=== PATIENT | female | born 1980 | race Caucasian/White ===

== ENCOUNTER 2025-04-28 13:30 | Observation (INO) ==
--- NOTE | 2025-04-28 14:17 | Emergency Department Note ---
Impression & Plan Atrial fibrillation, new onset, Hypokalemia, Elevated troponin I level ED Provider Note NAME: HUMA VELASCO AGE: 45 SEX: F : 1980 ARRIVES VIA: Walk-In INFORMANT: Patient, daughter ED PROVIDER(S): Imer Sawant DO CHIEF COMPLAINT: tachycardia HPI: This is a 45-year-old female with the PMHx of hypertension, hyperlipidemia and migraines presenting to [facility] for further evaluation of tachycardia. Patient is accompanied by her daughter who provide additional history. patient reports significant chest palpitations and tachycardia over the last 24 hours. Patient states this started last night. She has felt similar over the past few months. States that she did have a Holter monitor that revealed no abnormalities. She states she is scheduled for a echo in May. Patient denies significant alcohol or tobacco use disorder. No recent changes in medications. Did take her abortive medication for migraine overnight. She does note that she lost approximately 35 pounds without trying over the past year. They deny fever or chills. No cough or congestion. Denies chest pain. The patient does have minimal shortness of breath present. They deny abdominal pain, nausea and vomiting. No urinary complaints. No recent changes in bowel movements. Patient denies recent changes in medications or OTC supplements. Patient offers no other complaints, today. ADDITIONAL HISTORY OBTAINED: Per HPI Chronic Medical/Social Conditions Affecting Care: Per HPI PAST MEDICAL HISTORY: See Below PAST SURGICAL HISTORY: See Below FAMILY HISTORY: See Below SOCIAL HISTORY: See Below HOME MEDICATIONS: See Below ALLERGIES: See Below VITALS: See Below PHYSICAL EXAMINATION: GENERAL: Sitting up in bed, alert, well appearing, well nourished, no distress, non-toxic EYE EXAM: normal conjunctiva. PERRL and EOM's grossly intact. OROPHARYNX: no exudate, no erythema, lips, buccal mucosa, and tongue normal and mucous membranes are moist NECK: supple, no nuchal rigidity, no adenopathy, non-tender LUNGS: Clear to auscultation. Normal chest wall mechanics HEART: no murmurs, Tachycardic rate, irregular rhythm ABDOMEN: abdomen soft, non-tender, no masses, no rebound or guarding. BACK: Back is symmetrical on inspection and there is no deformity, no midline tenderness, no CVA tenderness. SKIN: no rashes and no bruising UPPER EXTREMITIES: upper extremities are grossly normal. LOWER EXTREMITIES: trace lower extremity edema. NEURO EXAM: Normal sensorium, GCS 15, normal speech, no gross weakness of arms, no gross weakness of legs. MEDICAL DECISION MAKING: Differential diagnoses includes but not limited to ACS, stable vs unstable angina, dysrhythmia, viral URI, pneumonia, pericarditis, pneumothorax, costochondritis, MSK strain, PE, hypertensive emergency, psychological causes, esophageal reflux, gastritis In summary, this is a 45 year old female who presented with tachycardia. Differential as above. Nursing notes and pertinent past medical records reviewed. Vital signs reviewed and the patient is tachycardic but otherwise afebrile hemodynamically stable. History and presentation revealed symptoms that have been similar over the course of the last 6 months to a year. No known history of atrial fibrillation. Physical examination revealed as above. As a result of my initial evaluation, the patient has felt similar over the past few months and I do feel that the patient is likely going in and out of atrial fibrillation with RVR. For this reason, we will elect for rate control medications over synchronized cardioversion. Plan to check labs. Patient's CHADSVASc will be 2. Would consider anticoagulation in this patient. Based on history and exam, do not feel the patient is in acute CHF. Diagnostics interpreted by me include EKG and cardiac monitoring as listed below: -Cardiac Monitoring: An order was placed for continuous cardiac monitoring. The monitor shows a rate of 80-170s with regular rhythm. -ECG: Atrial fibrillation with RVR at a rate of [address] segment changes to suggest STEMI. Intervals are otherwise within normal limits. Patient completed laboratory studies and imaging. Results independently interpreted by me are troponin leak that is likely secondary to the patient's atrial fibrillation with RVR. She did have hypokalemia that was replenished. She was given 40 mill equivalents of potassium chloride. Will benefit for additional replenishment. No significant anemia or leukocytosis. Does have mild hyperglycemia. No SULMA. TSH is low. The patient was managed with IV Cardizem bolus with improvement in rate. She intermittently was still having rates up into the 120s. Patient was given a second weight-based dose of Cardizem bolus. Repeat EKG was independently interpreted by me as rate controlled atrial fibrillation at [address] segment changes to suggest STEMI. Intervals are within normal limits. Unfortunately, the patient continued to have atrial fibrillation with RVR intermittently and she was started on a Cardizem drip with adjustments for better rate control. I did send in a prescription for Eliquis after extensive discussion with anticoagulation regarding the patient. She was agreeable to anticoagulation with a DOAC. This appears to be approximately $60 a month per pharmacy. Patient is agreeable to this. She was provided with a coupon for her first month of the prescription. Ultimately, the decision was made to admit the patient for new onset atrial fibrillation with RVR with hypokalemia. I discussed the case with the hospitalist service via telephone/[employer] and they are agreeable to admit the patient to their services by Dr. Rendon. Based on the above, including the patient's age, coexisting illnesses, labs, imaging, and exam findings the decision to treat as an inpatient. I discussed the patient with the hospitalist team who recommended admission to their services. They received the medications, treatments, interventions indicated above and their condition remained guarded. I discussed my findings with the patient and their family and they understand and agree with the treatment plan. All patient / family questions were answered to their satisfaction. Consults/Care Managements Discussions: Per MDM ER treatment provided: See above Procedures: none Critical Care: I have personally spent 38 minutes of critical care time in direct management of this patient. This includes bedside care, interpretation of diagnostic studies, and testing, discussion with consultants, patient, and family members, and other require inpatient management activities. This 38 minutes is in excess of all separately billable procedures. The chart was completed utilizing [employer] Speech voice recognition software. Grammatical errors, random word insertions, pronoun errors, and incomplete sentences are an occasional consequence of this system due to software limitations, ambient noise, and hardware issues. Any formal questions or concerns about the content, text, or information contained within the body of this dictation should be directly addressed to the physician for clarification. Past Med/Surg History Problem List (Updated 04/28/25 @ 16:45 by Imer Sawant DO) Elevated troponin I level (Acute) Hypokalemia (Acute) Atrial fibrillation, new onset (Acute) Heart palpitations Prediabetes Obesity Vitamin D deficiency Hyperlipidemia no meds Migraine headache Hypertension Medical History Seizure as child > none in 38 yrs Surgical History S/P LEEP Family History Mother Colonic polyp Hypertension Father Hypertension Grandmother (Paternal) Breast cancer Aunt Pancreatic cancer Denies family history of Ovarian cancer Prostate cancer Myocardial infarction Colorectal cancer Social History Smoking Status: Never smoker Second Hand Exposure: No; Do You Dip or Chew Tobacco: No; Hx Alcohol Use: No Hx Substance Use: No Preferred Language: Luxembourgish Communication Ability: Effective Visual Impairment: No Limitations Hearing Ability: Normal Circulation Worker Required: No Beliefs That Will Affect Care: None marital status: Current Living Situation: Spouse and Family current occupational status: employed current occupation: [employer]; [employer] How many Children do You have: 2 Feels Safe at Home: Yes Childhood Exposure to Second-Hand Smoke: Yes Diet: regular caffeine: Yes during the past year weight has: decreased > 10 lbs Dental Care, Regularly: Yes Physical Activity Frequency: Other Physical Activity Frequency Comment: at work Seatbelt Use: always Sunscreen Use: No Assistive Devices: Glasses Allergies Allergies Allergy/AdvReac Type Severity Reaction Status Date / Time No Known Drug Allergies Allergy Verified 09/23/24 13:50 Home Meds Home Medications Medication Instructions Recorded Confirmed cholecalciferol (vitamin D3) 50 2,000 unit PO QAM 03/23/23 04/28/25 mcg (2,000 unit) capsule Previous Rx's Medication Instructions Recorded sumatriptan succinate 100 mg tablet 100 mg PO .COMPLEX PRN migraine 05/21/24 headache #9 tabs hydrochlorothiazide 25 mg tablet 25 mg PO QAM #90 tabs 11/24/24 losartan 50 mg tablet 50 mg PO QAM #90 tabs 11/24/24 ubrogepant 100 mg tablet (Ubrelvy) See Rx Instructions .Route 03/27/25 .COMPLEX #10 tabs apixaban 5 mg tablet (Eliquis) 5 mg PO BID #60 tabs 04/28/25 Results & Data (ED) Vital Signs Vital Signs - 24 hr 04/28/25 13:34 04/28/25 14:09 04/28/25 14:26 Temperature 36.3 C L Temperature Source Temporal Artery Scan Pulse Rate 143 H 171 H Pulse Rate [Finger] Respiratory Rate 18 23 Blood Pressure 137/85 130/52 L Blood Pressure [Left Arm] Blood Pressure Mean 102 73 Blood Pressure Mean [Left Arm] Pulse Oximetry 97 96 Oxygen Delivery Method Room Air Sepsis Recent Fever Within 48 Hours No Sepsis New/Unexplained Change in Mental Status No Sepsis Action Taken by Nursing No Action Required 04/28/25 14:30 04/28/25 15:40 Temperature Temperature Source Pulse Rate 99 H Pulse Rate [Finger] 115 H Respiratory Rate 20 Blood Pressure 128/69 Blood Pressure [Left Arm] 143/91 H Blood Pressure Mean 79 Blood Pressure Mean [Left Arm] 108 Pulse Oximetry 99 Oxygen Delivery Method Sepsis Recent Fever Within 48 Hours Sepsis New/Unexplained Change in Mental Status Sepsis Action Taken by Nursing Laboratory Data 04/28/25 13:59 04/28/25 13:59 Lab Results 04/28/25 Range/Units 13:59 WBC 5.95 (4.8-10.8) K/ul RBC 5.11 (4.20-5.40) M/uL Hgb 13.2 (12.0-16.0) g/dl Hct 40.1 (37.0-47.0) % MCV 78.5 L (80.0-100.0) fL MCH 25.8 (25.0-34.0) pg MCHC 32.9 (32.0-36.0) g/dL RDW Std Deviation 35.8 L (36.4-46.3) fL RDW Coeff of Nima 12.5 (11.5-14.5) % Plt Count 262 (130-400) K/uL MPV 10.5 (9.4-12.4) fL Immature Gran % (Auto) 0.3 % Neut % (Auto) 59.6 % Lymph % (Auto) 31.6 % [place] % (Auto) 7.4 % Eos % (Auto) 0.8 % Baso % (Auto) 0.3 % Neut # (Auto) 3.54 (1.40-6.50) K/uL Lymph # (Auto) 1.88 (1.20-3.40) K/uL [place] # (Auto) 0.44 (0.11-0.59) K/uL Eos # (Auto) 0.05 (0.00-0.50) K/uL Baso # (Auto) 0.02 (0.00-0.20) K/uL Immature Gran # (Auto) 0.02 (0.01-0.20) K/uL Sodium 140 (136-145) mmol/L Potassium 3.2 L (3.5-5.1) mmol/L Chloride 106 (98-107) mmol/L Carbon Dioxide 29 (21-32) mmol/L Anion Gap 5 (3-11) BUN 12 (6-23) mg/dl Creatinine 0.54 L (0.6-1.2) mg/dl Est Cr Clr Drug Dosing 161.4 ml/min eGFR 114.20 BUN/Creatinine Ratio 22.2 H (10-20) Glucose 179 H (70-99(Fasting)) mg/dl Calcium 9.7 (8.6-10.3) mg/dl Magnesium 2.0 (1.7-2.4) mg/dl Total Bilirubin 0.9 (0.2-1.0) mg/dl AST 16 (13-39) U/L ALT 14 (7-52) U/L Alkaline Phosphatase 99 (34-104) U/L Troponin I High Sens 105.2 H* (0-14) pg/ml Total Protein 6.9 (6.0-8.3) gm/dl Albumin 3.8 (3.4-5.0) gm/dl Globulin 3.1 (2.5-4.0) gm/dl Albumin/Globulin Ratio 1.2 (0.9-2) Lipase 21 (11-82) U/L TSH < 0.010 L (0.300-4.500) uIu/ml Free T4 3.59 H (0.61-1.60) ng/dl HCG, Qual Negative (Negative) Administered Medications Discontinued Medications Apixaban (Apixaban 5 Mg Tablet) 5 mg PO ONE ONE Stop: 04/28/25 15:28 Last Admin: 04/28/25 15:47 Dose: 5 mg Documented By: CYNTHIA Diltiazem HCl (Diltiazem Hcl 5 Mg/Ml 5 Ml Vial) 20 mg IV NOW STA Stop: 04/28/25 14:07 Last Admin: 04/28/25 14:11 Dose: 20 mg Documented By: NATALIE Co-signed By: KRISTINA Diltiazem HCl (Diltiazem Hcl 5 Mg/Ml 5 Ml Vial) 25 mg IV NOW STA Stop: 04/28/25 15:00 Last Admin: 04/28/25 15:43 Dose: 25 mg Documented By: CYNTHIA Co-signed By: SAMIRA Parenteral Electrolytes (Plasma-Lyte A Ph 7.4) 1,000 mls @ 999 mls/hr IV .Q1H1M ONE Stop: 04/28/25 15:06 Last Infusion: 04/28/25 15:30 Dose: Infused Documented By: Admin: 04/28/25 14:33 Dose: 999 mls/hr Documented By: NATALIE Potassium Chloride (Potassium Chloride Crtab 20 Meq Tabcr) 40 meq PO NOW STA Stop: 04/28/25 15:00 Last Admin: 04/28/25 15:42 Dose: 40 meq Documented By: CYNTHIA Imaging Data Radiologist's Impression: Chest X-Ray 04/28/25 14:06 XR chest 1V portable CLINICAL HISTORY: Chest pain, nonspecific COMPARISON STUDY: None FINDINGS: Heart size and pulmonary vasculature are normal. No consolidation or pleural effusion. No pneumothorax. IMPRESSION: No acute findings. ACT 112: Negative or not required by law. Electronically signed by: Ford Lam M.D. 04/28/2025 2:34 PM Discharge Plan Visit Data Chief Complaint: Tachycardia Stated Complaint: RAPID HEART BEAT FOR 15 HOURS ED Provider: Imer Sawant Discharge Problem: Atrial fibrillation, new onset, Hypokalemia, Elevated troponin I level Patient Disposition: Admitted As Inpatient Condition: Serious Forms Stand Alone Forms: My [facility] Prescriptions Prescriptions: New Eliquis 5 mg tablet 5 mg PO BID Qty: 60 0RF Rx Instructions: new order No Action sumatriptan succinate 100 mg tablet 100 mg PO .COMPLEX PRN (Reason: migraine headache) Qty: 9 5RF Rx Instructions: TAKE 1 TABLET AT ONSET OF MIGRAINE HEADACHE. MAY REPEAT IN 2 HOURS IF NEEDED PRN; hydrochlorothiazide 25 mg tablet 25 mg PO QAM Qty: 90 1RF losartan 50 mg tablet 50 mg PO QAM Qty: 90 1RF cholecalciferol (vitamin D3) 50 mcg (2,000 unit) capsule 2,000 unit PO QAM Ubrelvy 100 mg tablet See Rx Instructions .Route .COMPLEX Qty: 10 0RF Rx Instructions: Take 1 tab PO at onset of headache. May repeat dose after 1 hr x 1 if needed. Do not exceed 200mg in 24 hrs.; Referrals Referrals: Kia Tariq DO [Primary Care Provider] -
[2025-04-28 14:25] LABS: Hematocrit (blood only) 40.1 % (37.0-47.0); Hemoglobin 13.2 g/dl (12.0-16.0); Immature Granulocytes # (auto) 0.02 K/uL (0.01-0.20); Immature Granulocytes % (auto) 0.3 %; Mean Corpuscular Hemoglobin 25.8 pg (25.0-34.0); Mean Corpuscular Volume 78.5 fL (80.0-100.0); Platelet Count 262 K/uL (130-400); RDW Standard Deviation 35.8 fL (36.4-46.3); Red Blood Count 5.11 M/uL (4.20-5.40); White Blood Count 5.95 K/ul (4.8-10.8)
[2025-04-28] MEDS: PLASMA-LYTE A 1,000 ML IV ONE (14:33)
--- NOTE | 2025-04-28 14:35 | XRay Report ---
XR chest 1V portable CLINICAL HISTORY: Chest pain, nonspecific COMPARISON STUDY: None FINDINGS: Heart size and pulmonary vasculature are normal. No consolidation or pleural effusion. No p neumothorax. IMPRESSION: No acute findings. ACT 112: Negative or not required by law. Electronically signed by: Ford Lam M.D. 04/28/2025 2:34 PM
[2025-04-28 14:38] LABS: Pregnancy Test, Serum Negative (Negative)
[2025-04-28 14:42] LABS: Alanine Aminotransferase 14 U/L (7-52); Albumin Globulin Ratio 1.2 (0.9-2); Albumin Level 3.8 gm/dl (3.4-5.0); Alkaline Phosphatase 99 U/L (34-104); Anion Gap 5 (3-11); Bilirubin,Total 0.9 mg/dl (0.2-1.0); Blood Urea Nitrogen 12 mg/dl (6-23); Calcium 9.7 mg/dl (8.6-10.3); Carbon Dioxide 29 mmol/L (21-32); Chloride 106 mmol/L (98-107); Creatinine Clr Calc Pharmacy 161.4 ml/min; Globulin 3.1 gm/dl (2.5-4.0); Glucose 179 mg/dl (70-99(Fasting)); Lipase 21 U/L (11-82); Magnesium 2.0 mg/dl (1.7-2.4); Potassium 3.2 mmol/L (3.5-5.1); Sodium 140 mmol/L (136-145); Total Protein 6.9 gm/dl (6.0-8.3)
--- NOTE | 2025-04-28 14:55 | Electrocardiogram Report ---
Test Reason : Blood Pressure : */* mmHG Vent. Rate : 163 BPM Atrial Rate : * BPM P-R Int : * ms QRS Dur : 88 ms QT Int : 270 ms P-R-T Axes : * 5 8 degrees QTcB Int : 444 ms Atrial fibrillation with rapid ventricular response Possible Anterior infarct , age undetermined Abnormal ECG No previous ECGs available Confirmed by Bar Jean ([id number]) on 04/28/2025 2:55:25 PM Referred By: REFERRED SELF Confirmed By: Bar Jean
[2025-04-28 15:00] LABS: Thyroid Stimulating Hormone < 0.010 uIu/ml (0.300-4.500)
[2025-04-28 15:36] LABS: T4 Free Thyroxine 3.59 ng/dl (0.61-1.60)
[2025-04-28] MEDS: POTASSIUM CHLORIDE CRTAB 20 MEQ TABCR PO STA ×2 (15:42→17:18)
[2025-04-28] MEDS: APIXABAN 5 MG TABLET PO ONE (15:47)
--- NOTE | 2025-04-28 16:36 | History & Physical Report ---
Date of Service April 28, 2025 Assessment & Plan (1) Atrial fibrillation, new onset: (2) Hypokalemia: (3) Elevated troponin I level: (4) Hyperthyroidism: Plan This patient is a 45-year-old female with a history of HTN, prediabetes, obesity, vitamin D deficiency, migraine headaches, HLD who presents to the ER with significant chest palpitations and a fast heart rate along with development of shortness of breath over the last 24 hours. She has been having intermittent heart palpitations over the last 6 to 9 months and had a Holter monitor for 6 days which was normal in 10/2024. Denies chest pain. In the ED, she was found to be in rapid atrial fibrillation with a rate of 163 on ECG. She had no ischemic changes but her troponin was elevated at 105. Her TSH was undetectable and her free T4 was elevated. She was given 2 boluses of IV diltiazem which brought her heart rate down to 120s and was started on a diltiazem drip. There was no evidence of heart failure and in fact the patient reports she has unintentionally lost about 30 pounds over the last year. She is admitted for rapid atrial fibrillation and overt hyperthyroidism #Rapid atrial fibrillation/elevated troponin-likely precipitated by hyperthyroidism. Troponin 100/97, no ischemic changes on ECG, no chest pain, no evidence of CHF -admit to PCU for tele monitoring -given that she has an Apple Watch that indicates Afib and knows the exact time her Afib started (2230 on 04/27), started Eliquis afternoon of 04/28, may be able to perform cardioversion if does not spontaneously convert by the morning--> consult Cardio and keep NPO after midnight in case -replace K+ to improve hypokalemia and follow Mag levels to keep replete -start metoprolol 25mg now and then 25mg po bid-titrate up as able to--> this will treat both hyperthyroidism symptoms and rapid afib -continue diltiazem gtt started in ED-titrate -started Eliquis 5mg po bid -check ECHO -trend serial trops -treat hyperthyroidism #Hyperthyroidism-TSH undetectable, FT4 high, FT3 added on and also very high. With unintentional weight loss, rapid atrial fibrillation, thinning hair, dysphagia, possible palpable thyroid nodule on exam -start beta duncan with metoprolol -will likely start methimazole vs PTU--> will discuss with Endocrine in the AM -check TSI, TPO ab, and thyroglobulin ab in AM -check thyroid US given palpable nodule -needs referral to Endocrine as outpt #Hypokalemia-K+ 3.2 on admission, 2/2 HCTZ use -replaced in ED with KCl 80 meq po -follow BMP, mag in AM #HTN/HLD-BPs normal but hold HCTZ for hypokalemia and hold losartan while uptitrating metoprolol and diltiazem for Afib to avoid hypotension #Microcytosis without anemia-hgb normal but MCV now low at 79 -check Fe studies, ferritin in AM -follow CBC especially now that starting on eliquis in case of occult bleeding #Prediabetes-glucose 179 on arrival, last A1C 5.9% -check A1C -loose Novolog SSI #Obesity BMI 36.6-has already lost 30 lbs from hyperthyroidism -follow as outpt #Migraine headaches-with current LOPEZ likely related to rapid afib -triptans prn #Vitamin D deficiency-continue vit D supplement DVT prophylaxis-Eliquis Disposition-admit to PCU History of Present Illness Chief Complaint: Shortness of breath, heart palpitations Primary Care Provider: Kia Tariq, This patient is a 45-year-old female with a history of HTN, prediabetes, obesity, vitamin D deficiency, migraine headaches, HLD who presents to the ER with significant chest palpitations and a fast heart rate along with development of shortness of breath over the last 24 hours. She has been having intermittent heart palpitations over the last 6 to 9 months and had a Holter monitor for 6 days which was normal in 10/2024. Denies chest pain. In the ED, she was found to be in rapid atrial fibrillation with a rate of 163 on ECG. She had no ischemic changes but her troponin was elevated at 105. Her TSH was undetectable and her free T4 was elevated. She was given 2 boluses of IV diltiazem which brought her heart rate down to 120s and was started on a diltiazem drip. There was no evidence of heart failure and in fact the patient reports she has unintentionally lost about 30 pounds over the last year.Has had some dysphagia as well. She will be admitted for rapid atrial fibrillation. Allergies Allergy/AdvReac Type Severity Reaction Status Date / Time No Known Drug Allergies Allergy Verified 09/23/24 13:50 Home Medications Medication Instructions Recorded Confirmed Type cholecalciferol (vitamin D3) 50 2,000 unit PO QAM 03/23/23 04/28/25 History mcg (2,000 unit) capsule sumatriptan succinate 100 mg tablet 100 mg PO .COMPLEX PRN migraine 05/21/24 04/28/25 Rx headache #9 tabs hydrochlorothiazide 25 mg tablet 25 mg PO QAM #90 tabs 11/24/24 04/28/25 Rx losartan 50 mg tablet 50 mg PO QAM #90 tabs 11/24/24 04/28/25 Rx ubrogepant 100 mg tablet (Ubrelvy) See Rx Instructions .Route 03/27/25 04/28/25 Rx .COMPLEX #10 tabs apixaban 5 mg tablet (Eliquis) 5 mg PO BID #60 tabs 04/28/25 04/28/25 Rx Past Med/Surg History Problem List Hyperthyroidism Elevated troponin I level (Acute) Hypokalemia (Acute) Atrial fibrillation, new onset (Acute) Heart palpitations Prediabetes Obesity Vitamin D deficiency Hyperlipidemia no meds Migraine headache Hypertension Medical History Seizure as child > none in 40 yrs Surgical History S/P LEEP Family History (Updated 04/29/25 @ 00:16 by Jie Rendon MD) Mother Colonic polyp Hypertension Atrial fibrillation Father Hypertension Grandmother (Paternal) Breast cancer Aunt Pancreatic cancer Denies family history of Ovarian cancer Prostate cancer Myocardial infarction Colorectal cancer Social History Smoking Status: Never smoker Second Hand Exposure: No; Do You Dip or Chew Tobacco: No; Tobacco Cessation Education Requested by Patient: No Hx Alcohol Use: Yes Alcohol type: wine Alcohol Intake Frequency: Monthly or Less Hx Substance Use: No Preferred Language: German Communication Ability: Effective Visual Impairment: No Limitations Hearing Ability: Normal Pharmacy Order Entry Technician Required: No Beliefs That Will Affect Care: None marital status: Current Living Situation: Spouse current occupational status: employed 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; [employer] How many Children do You have: 2 Other Information That Helps Us Care for You: No Feels Safe at Home: Yes Safety Concerns: Feels Safe At This Time Childhood Exposure to Second-Hand Smoke: Yes Diet: regular caffeine: Yes during the past year weight has: decreased > 10 lbs Dental Care, Regularly: Yes Physical Activity Frequency: Other Physical Activity Frequency Comment: at work Seatbelt Use: always Sunscreen Use: No Assistive Devices: Glasses Review of Systems Review of Systems: All systems reviewed & are unremarkable except as noted in HPI & below has a headache currently which is unusual for her denies fevers/chills, cough, cold symptoms, CP, abd pain, nausea, diarrhea or constipation; has had some hair thinning is getting regular periods has hot flashes Physical Exam Constitutional: WD/WN, vitals as above Eyes: PERRL, conjunctivae normal, anicteric sclerae ENMT: external ear and nose normal, oropharynx normal Neck: normal visual inspection and trachea midline Thyroid: + thyroid nodule (possible nodule palpated right lobe); thyroid nontender Respiratory: normal respiratory effort, lungs clear to auscultation Cardiovascular: Rate/Rhythm: + tachycardic and + irregularly irregular Heart Sounds: no murmur Vessels: dorsalis pedis pulses present Extremities: no edema Chest (Breasts): Chest: normal inspection of chest Gastrointestinal (Abdomen): normal bowel sounds, soft, nontender, no hepatosplenomegaly Musculoskeletal: Extremities: extremities normal to inspection; no cyanosis and no clubbing Skin: no rashes, warm and dry Neurologic: moves all extremities and awake; no focal motor deficits Psychiatric: A+Ox3, euthymic affect Lymphatic: no lymphedema Results & Data Results & Data Vital Signs (Past 12 Hours) Vital Signs Temp Pulse Pulse Resp BP BP Pulse Ox 04/28/25 15:40 115 H 20 143/91 H 99 04/28/25 14:30 99 H 128/69 04/28/25 14:26 130/52 L 04/28/25 14:09 171 H 23 96 04/28/25 13:34 36.3 C L 143 H 18 137/85 97 O2 Del Method 04/28/25 15:40 04/28/25 14:30 04/28/25 14:26 04/28/25 14:09 04/28/25 13:34 Room Air Laboratory Results CBC, CMP, troponin, magnesium, lipase, TSH, free T4, hCG reviewed Diagnostic Findings CXR image personally reviewed and agree with the following report: Chest X-Ray 04/28/25 14:06 XR chest 1V portable CLINICAL HISTORY: Chest pain, nonspecific COMPARISON STUDY: None FINDINGS: Heart size and pulmonary vasculature are normal. No consolidation or pleural effusion. No pneumothorax. IMPRESSION: No acute findings. ECG Additional Comments: ECG on 04/28/2025 at 1346 with atrial fibrillation, rate 163, no ischemic changes Code Status & VTE Plan Code Status FULL CODE VTE Prophylaxis Plan VTE Prophylaxis will be ordered: Yes PG Care Time/CCT Total # of Minutes Spent Total Time Spent with Patient: Total time spent is greater than 50% in coordination of care (as documented) at patient's floor/unit and/or counseling patient: Coding Level of Care Code 37401 INT INP/OBS CARE 3/75MIN Diagnoses Atrial fibrillation, new onset I48.91 Hypokalemia E87.6 Elevated troponin I level R79.89 Hyperthyroidism E05.90
[2025-04-28] MEDS: STAT IV Infusion **Titration per Protocol STA (16:53)
[2025-04-28] MEDS: METOPROLOL TARTRATE 25 MG TAB PO ONE (19:26)
[2025-04-28] MEDS ORDERED: POLYETHYLENE (MIRALAX) 17 GM PACK PO PRN (20:51)
[2025-04-28] MEDS ORDERED: ACETAMINOPHEN 325 MG TAB PO PRN (20:51)
[2025-04-28] MEDS ORDERED: GLUCOSE 10 TAB/TUBE PO PRN (20:51)
[2025-04-28] MEDS ORDERED: ONDANSETRON INJ 2 MG/ML 2 ML VIAL IV PRN (20:51)
[2025-04-28] MEDS ORDERED: CARBOHYDRATES FOR HYPOGLYCEMIA PO PRN (20:51)
[2025-04-28] MEDS ORDERED: DEXTROSE 50% 50 ML SYRINGE IV PRN (20:51)
[2025-04-28] MEDS ORDERED: GLUCAGON FOR INJ 1 MG VIAL SQ PRN (20:51)
[2025-04-28] MEDS ORDERED: GLUCOSE 40% GEL 15 GM TUBE PO PRN (20:51)
[2025-04-28] MEDS ORDERED: METOPROLOL TARTRATE 25 MG TAB PO SCH (21:00)
[2025-04-28] MEDS: INSULIN ASPART PER UNIT CHARGE SC SCH (21:27)
--- NOTE | 2025-04-29 01:27 | Ultrasound Report ---
Exam(s): US THYROID EXAM: US Soft Tissues Head and Neck, Thyroid CLINICAL HISTORY: Reason for exam: hyperthyroidism, palpable nodule. TECHNIQUE: Real-time ultrasound scan of the thyroid gland and soft tissues of the neck with image documentation. COMPARISON: No relevant prior studies available. FINDINGS: Right thyroid lobe: The right lobe measured 4.8 x 2.2 x 2.0 cm. The right lobe of the gland is inhomogeneous. It contains a hypervascular nodule measuring 3.4 x 1.4 x 1.7 cm. There is a second nodule measuring 0.5 x 0.3 x 0.6 cm.. Left thyroid lobe: The left lobe measured 4.6 x 2.0 x 1.8 cm. The left lobe of the gland is inhomogeneous and of increased vascularity. Isthmus: The isthmus measures 0.3 cm in thickness. IMPRESSION: Thyroid gland is inhomogeneous and of increased vascularity. This raises the possibility of Graves' disease. There are 2 nodules noted in the right lobe of the gland measuring 3.4 x 1.4 x 1.7 cm and 0.5 x 0.3 x 0.6 cm.. Underlying malignancy and the larger nodule cannot be excluded. Consider correlation with biopsy.. Electronically signed by: Price Rudolph MD 04/29/25 01:26 AM
[2025-04-29 03:07] VITALS: RESP 18
[2025-04-29 06:33] LABS: Hematocrit (blood only) 37.8 % (37.0-47.0); Hemoglobin 12.3 g/dl (12.0-16.0); Immature Granulocytes # (auto) 0.02 K/uL (0.01-0.20); Immature Granulocytes % (auto) 0.3 %; Mean Corpuscular Hemoglobin 25.9 pg (25.0-34.0); Mean Corpuscular Volume 79.7 fL (80.0-100.0); Platelet Count 238 K/uL (130-400); RDW Standard Deviation 36.2 fL (36.4-46.3); Red Blood Count 4.74 M/uL (4.20-5.40); White Blood Count 6.58 K/ul (4.8-10.8)
[2025-04-29 07:11] LABS: Anion Gap 5.0 (3-11); Blood Urea Nitrogen 10.0 mg/dl (6-23); Calcium 9.4 mg/dl (8.6-10.3); Carbon Dioxide 27.0 mmol/L (21-32); Chloride 109.0 mmol/L (98-107); Creatinine Clr Calc Pharmacy 181.5 ml/min; Glucose 119.0 mg/dl (70-99(Fasting)); Iron 71.0 mcg/dl (35-150); Magnesium 2.0 mg/dl (1.7-2.4); Potassium 3.8 mmol/L (3.5-5.1); Sodium 141.0 mmol/L (136-145); Total Iron Binding Cap Calc 322.0 mcg/dl (250-450); Transferrin 230.0 mg/dl (200-360); Transferrin (FE) Percent Satur 22.0 % (15-50)
[2025-04-29 07:28] VITALS: TEMP 97.9
[2025-04-29 07:31] LABS: Ferritin 113.6 ng/ml (8-388)
[2025-04-29 08:02] LABS: Hemoglobin A1C 6.0 % (4.5-5.6)
--- NOTE | 2025-04-29 08:24 | Cardiology Consultation ---
Date of Consultation April 29, 2025 Assessment & Plan (1) Paroxysmal atrial fibrillation: (2) Hypertension: (3) Hyperthyroidism: Plan ASSESSMENT/PLAN: 1. Paroxysmal atrial fibrillation: Quite symptomatic. Likely 2 episodes in September 2024 and definitively documented 04/28/2025 but in the setting of hyperthyroidism. Discussed the diagnosis. Fortunately, she spontaneously converted. Recommend metoprolol tartrate 25 mg twice daily. Recommend anticoagulation for stroke risk reduction. If the etiology of the atrial fibrillation is hyperthyroidism, would hope for resolution of future episodes when thyroid issues are corrected. Monitor CBC while on anticoagulation therapy. 2. Hypertension: History of hypertension. Blood pressure reasonably controlled. Adding beta-duncan as above. 3. Hyperthyroidism: As per primary hospitalist service and endocrinology. 4. Disposition: Follow-up in the cardiology office in the next few weeks. Call sooner for questions or concerns. Patient care communicated with Dr. Rendon of the primary hospitalist service. Thank you for allowing me to participate in the care of your patient. Please call for any other questions or concerns. Sincerely, Leonid Aguiar M.D. History of Present Illness Reason for Consultation: " New onset rapid atrial fibrillation" Requesting Physician: Jie Rendon MD Attending Physician: Jie Rendon MD History of Present Illness Ms. Merino is a very pleasant 45-year-old female with a history significant for hypertension, prediabetes, dyslipidemia, hypothyroidism. She was hospitalized on 04/28/2025 with newly diagnosed atrial fibrillation with rapid ventricular response and notable to have undetectable TSH and elevated free T4 levels. She was placed on intravenous diltiazem upon presentation. She has had the following studies/procedures: 1. Echo 02/10/2022 [facility]: Normal LV size, wall motion, systolic function. EF 65- 70%. Mild LVH. No significant valvular abnormalities. Normal RVSP. 2. Holter 10/14/2024 to 10/20/2024 [facility]: Sinus rhythm with average HR 80 bpm (54 to 142 bpm). Rare PACs and PVCs. No atrial fibrillation/flutter. No significant pause. She was hospitalized on 04/28/2025 with atrial fibrillation and rapid ventricular response. On 04/27/2025, at approximately 10:30 PM, she noted palpitations described as a flip-flop sensation in the chest but also initially noted in her neck. There was no associated chest pain or shortness of breath subjectively but her told her that she looked as though she was panting. She called her PCP at 11:30 AM the next morning and was instructed to go to the ER. She was diagnosed with A-fib with RVR on initial ECG. She received intravenous diltiazem which improved her heart rate. She notes that she had 2 other episodes in August or September 2024 that occurred in the evening/night but resolved by the time she woke up the next morning. On 1 occasion her Fitbit alerted that atrial fibrillation was detected. She estimates that these episodes lasted up to a couple of hours. She otherwise denies any other such symptoms. She recently had a 30 pound nonintentional weight loss from December 2024 to March of this year. She denies edema, syncope, near syncope, chest pain, melena, hematochezia, or hematuria. Review of systems: As above. Family history: Mother had atrial fibrillation and underwent Watchman device. 16-year-old son has hypertension and LVH and was evaluated for hypertrophic cardiomyopathy with apparently negative workup. Social history: She denies alcohol or drug abuse. Rare alcohol. She lives at home with her and 2 children. She lost a baby at 40 weeks in 2005. 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 She was unaccompanied. Allergies Allergy/AdvReac Type Severity Reaction Status Date / Time No Known Drug Allergies Allergy Verified 09/23/24 13:50 Home Medications Medication Instructions Recorded Confirmed Type cholecalciferol (vitamin D3) 50 2,000 unit PO QAM 03/23/23 04/28/25 History mcg (2,000 unit) capsule sumatriptan succinate 100 mg tablet 100 mg PO .COMPLEX PRN migraine 05/21/24 04/28/25 Rx headache #9 tabs hydrochlorothiazide 25 mg tablet 25 mg PO QAM #90 tabs 11/24/24 04/28/25 Rx losartan 50 mg tablet 50 mg PO QAM #90 tabs 11/24/24 04/28/25 Rx ubrogepant 100 mg tablet (Ubrelvy) See Rx Instructions .Route 03/27/25 04/28/25 Rx .COMPLEX #10 tabs apixaban 5 mg tablet (Eliquis) 5 mg PO BID #60 tabs 04/28/25 04/28/25 Rx methimazole 10 mg tablet 20 mg (2 x 10 mg) PO BID #120 tabs 04/29/25 Rx metoprolol succinate 25 mg 75 mg (3 x 25 mg) PO HS #90 tabs 04/29/25 Rx tablet,extended release 24 hr (Toprol XL) Problem List (Updated 04/29/25 @ 13:20 by Elan Aguiar MD) Paroxysmal atrial fibrillation Hyperthyroidism Elevated troponin I level (Acute) Hypokalemia (Acute) Atrial fibrillation, new onset (Acute) Heart palpitations Prediabetes Obesity Vitamin D deficiency Hyperlipidemia no meds Migraine headache Hypertension Patient History Medical History Seizure as child > none in 40 yrs Surgical History S/P LEEP Family History (Updated 04/29/25 @ 00:16 by Jie Rendon MD) Mother Colonic polyp Hypertension Atrial fibrillation Father Hypertension Grandmother (Paternal) Breast cancer Aunt Pancreatic cancer Denies family history of Ovarian cancer Prostate cancer Myocardial infarction Colorectal cancer Social History Smoking Status: Never smoker Second Hand Exposure: No; Do You Dip or Chew Tobacco: No; Hx Alcohol Use: Yes Alcohol type: wine Alcohol Intake Frequency: Monthly or Less Hx Substance Use: No Preferred Language: Azeri Communication Ability: Effective Visual Impairment: No Limitations Hearing Ability: Normal Mounter Flutes [employer] Piccolos Required: No Beliefs That Will Affect Care: None marital status: Current Living Situation: Spouse current occupational status: employed 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 Alert and oriented. HEENT: Anicteric sclera. Neck: No JVD. No bruits. Normal carotid upstrokes bilaterally. Cardiac: Regular. Normal S1-S2. No murmurs, rubs, or gallops. Pulmonary: Clear to auscultation bilaterally without wheezes, rales, or rhonchi. Abdomen: Soft, nontender, nondistended, with normoactive bowel sounds. No bruits noted. Extremities: 2+ radial pulses bilaterally. 2+ posterior tibialis pulses bilaterally. No edema or cyanosis. Psychiatric: Affect appears appropriate. Results & Data Vital Signs (Past 12 Hours) Vital Signs Temp Pulse Pulse Resp BP Pulse Ox O2 Del Method 04/29/25 07:28 36.6 C 80 18 119/67 97 Room Air 04/29/25 03:06 36.9 C 103 H 18 110/78 96 Room Air 04/28/25 22:52 36.8 C 79 20 96/67 L 98 Room Air 04/28/25 22:50 85 141/66 H 04/28/25 21:11 36.5 C 95 H 18 132/85 99 Room Air 04/28/25 20:50 104 H Laboratory Results Laboratory Results - last 24 hr 04/28/25 04/28/25 04/28/25 13:59 17:00 17:01 WBC 5.95 RBC 5.11 Hgb 13.2 Hct 40.1 MCV 78.5 L MCH 25.8 MCHC 32.9 RDW Std Deviation 35.8 L RDW Coeff of Nima 12.5 Plt Count 262 MPV 10.5 Immature Gran % (Auto) 0.3 Neut % (Auto) 59.6 Lymph % (Auto) 31.6 [place] % (Auto) 7.4 Eos % (Auto) 0.8 Baso % (Auto) 0.3 Neut # (Auto) 3.54 Lymph # (Auto) 1.88 [place] # (Auto) 0.44 Eos # (Auto) 0.05 Baso # (Auto) 0.02 Immature Gran # (Auto) 0.02 Sodium 140 Potassium 3.2 L Chloride 106 Carbon Dioxide 29 Anion Gap 5 BUN 12 Creatinine 0.54 L Est Cr Clr Drug Dosing 161.4 eGFR 114.20 BUN/Creatinine Ratio 22.2 H Glucose 179 H POC Glucose Estimat Average Glucose Hemoglobin A1c Calcium 9.7 Magnesium 2.0 Iron TIBC Transferrin Transferrin % Sat Ferritin Total Bilirubin 0.9 AST 16 ALT 14 Alkaline Phosphatase 99 Troponin I High Sens 105.2 H* 99.7 H* Total Protein 6.9 Albumin 3.8 Globulin 3.1 Albumin/Globulin Ratio 1.2 Lipase 21 TSH < 0.010 L Free T4 3.59 H Free T3 10.35 H Thyroglobulin Thyroid Stim Immunoglob HCG, Qual Negative Thyroid Antimicrosomal Thyroglobulin Antibody 04/28/25 04/28/25 04/29/25 21:03 23:23 06:01 WBC RBC Hgb Hct MCV MCH MCHC RDW Std Deviation RDW Coeff of Nima Plt Count MPV Immature Gran % (Auto) Neut % (Auto) Lymph % (Auto) [place] % (Auto) Eos % (Auto) Baso % (Auto) Neut # (Auto) Lymph # (Auto) [place] # (Auto) Eos # (Auto) Baso # (Auto) Immature Gran # (Auto) Sodium Potassium Chloride Carbon Dioxide Anion Gap BUN Creatinine Est Cr Clr Drug Dosing eGFR BUN/Creatinine Ratio Glucose POC Glucose 149 H Estimat Average Glucose Hemoglobin A1c Calcium Magnesium Iron TIBC Transferrin Transferrin % Sat Ferritin Total Bilirubin AST ALT Alkaline Phosphatase Troponin I High Sens 102.2 H* Total Protein Albumin Globulin Albumin/Globulin Ratio Lipase TSH Free T4 Free T3 Thyroglobulin Pending Thyroid Stim Immunoglob Pending HCG, Qual Thyroid Antimicrosomal Pending Thyroglobulin Antibody Pending 04/29/25 06:02 WBC 6.58 RBC 4.74 Hgb 12.3 Hct 37.8 MCV 79.7 L MCH 25.9 MCHC 32.5 RDW Std Deviation 36.2 L RDW Coeff of Nima 12.7 Plt Count 238 MPV 10.6 Immature Gran % (Auto) 0.3 Neut % (Auto) 54.4 Lymph % (Auto) 35.1 [place] % (Auto) 8.2 Eos % (Auto) 1.7 Baso % (Auto) 0.3 Neut # (Auto) 3.58 Lymph # (Auto) 2.31 [place] # (Auto) 0.54 Eos # (Auto) 0.11 Baso # (Auto) 0.02 Immature Gran # (Auto) 0.02 Sodium 141 Potassium 3.8 Chloride 109 H Carbon Dioxide 27 Anion Gap 5 BUN 10 Creatinine 0.48 L Est Cr Clr Drug Dosing 181.5 eGFR 117.49 BUN/Creatinine Ratio 20.8 H Glucose 119 H POC Glucose Estimat Average Glucose 126 Hemoglobin A1c 6.0 H Calcium 9.4 Magnesium 2.0 Iron 71 TIBC 322 Transferrin 230 Transferrin % Sat 22 Ferritin 113.6 Total Bilirubin AST ALT Alkaline Phosphatase Troponin I High Sens 94.2 H* Total Protein Albumin Globulin Albumin/Globulin Ratio Lipase TSH Free T4 Free T3 Thyroglobulin Thyroid Stim Immunoglob HCG, Qual Thyroid Antimicrosomal Thyroglobulin Antibody Diagnostic Findings Labs reviewed and notable for undetectable TSH, normal renal function, normal potassium, normal magnesium level, normal transaminase levels. Normal blood counts. ECG personally reviewed from 04/28/2025 at 1346: Atrial fibrillation with rapid ventricular response. 163 bpm. Possible anterior infarct. Echo report reviewed from 02/10/2022: Normal LV size, wall motion, systolic function. EF 65-70%. Mild LVH. No significant valvular abnormalities. Normal RVSP. History and physical report reviewed. Holter report reviewed from 10/14/2024 to 10/20/2024: Sinus rhythm with average HR 80 bpm (54 to 142 bpm). Rare PACs and PVCs. No atrial fibrillation/flutter. No significant pause. Chest x-ray 04/28/2025: No acute findings per radiology. Telemetry personally reviewed: Atrial fibrillation with rapid ventricular response converted to sinus rhythm on 04/29/2025 at 5:14 AM. Repeat ECG ordered and reviewed from 04/29/2025: NSR 75 bpm. Normal ECG. Preliminary echo reviewed 04/29/2025: Normal LV systolic function. Sinus rhythm. Medications Administered Current Inpatient Medications Acetaminophen (Acetaminophen 325 Mg Tab) 650 mg PO Q4H PRN PRN Reason: Pain or Fever Stop: 05/28/25 20:50 Apixaban (Apixaban 5 Mg Tablet) 5 mg PO BID KAILEE Stop: 05/29/25 08:59 Dextrose (Dextrose 50% 50 Ml Syringe) 25 - 50 ml IV UD PRN; Protocol PRN Reason: Hypoglycemia Protocol Stop: 05/28/25 20:50 Diltiazem HCl (Diltiazem Hcl 30 Mg Tab) 30 mg PO QID KAILEE Stop: 05/29/25 06:59 Last Admin: 04/29/25 07:15 Dose: 30 mg Glucagon (Glucagon For Inj 1 Mg Vial) 1 mg SQ UD PRN; Protocol PRN Reason: Hypoglycemia Protocol Stop: 05/28/25 20:50 Glucose (Glucose 40% Gel 15 Gm Tube) 15 - 30 gm PO UD PRN; Protocol PRN Reason: Hypoglycemia Protocol Stop: 05/28/25 20:50 Glucose (Glucose 10 Tab/Tube) 4 - 8 tab PO UD PRN; Protocol PRN Reason: Hypoglycemia Protocol Stop: 05/28/25 20:50 Insulin Aspart (Insulin Aspart Per Unit Charge) 0 units SC ACHS KAILEE Stop: 05/28/25 20:59 Last Admin: 04/28/25 21:27 Dose: Not Given Metoprolol Tartrate (Metoprolol Tartrate 25 Mg Tab) 25 mg PO BID [facility] Stop: 05/29/25 08:59 Miscellaneous (Carbohydrates For Hypoglycemia ) 15 - 30 gm PO UD PRN PRN Reason: Hypoglycemia Protocol Stop: 05/28/25 20:50 Ondansetron HCl (Ondansetron Inj 2 Mg/Ml 2 Ml Vial) 4 mg IV Q6H PRN PRN Reason: Nausea Stop: 05/28/25 20:50 Polyethylene Glycol (Polyethylene (Miralax) 17 Gm Pack) 17 gm PO DAILY PRN PRN Reason: Constipation Stop: 05/28/25 20:50 Sumatriptan Succinate (Sumatriptan Succinate 100 Mg Tab) 100 mg PO Q2H PRN PRN Reason: migraine headache Stop: 05/28/25 20:50 Vitamin D (Cholecalciferol 25 Mcg (1000 Units) Tab) 50 mcg PO QAM [facility] Stop: 05/29/25 08:59 PG Care Time/CCT Total # of Minutes Spent Total Time Spent with Patient: Total time spent is greater than 50% in coordination of care (as documented) at patient's floor/unit and/or counseling patient: Coding Level of Care Code 28479 IN/OBS CONSULT LVL 4,60M Diagnoses Paroxysmal atrial fibrillation I48.0 Hypertension I10 Hyperthyroidism E05.90
[2025-04-29] MEDS: [UNRECOGNIZED DRUG - REMARK] ONE (08:41)
[2025-04-29] MEDS: METOPROLOL TARTRATE 25 MG TAB PO SCH (08:44)
[2025-04-29] MEDS: APIXABAN 5 MG TABLET PO SCH (08:44)
[2025-04-29] MEDS: CHOLECALCIFEROL 25 MCG (1000 UNITS) TAB PO SCH (08:44)
[2025-04-29 11:05] VITALS: BP 121/63; PULSE 78; O2SAT 98
--- NOTE | 2025-04-29 13:08 | Discharge Summary ---
Discharge Summary Date of Service April 29, 2025 Principal Dx & Hospital Course #1 = Principal Diagnosis (1) Atrial fibrillation, new onset: (2) Hypokalemia: (3) Elevated troponin I level: (4) Hyperthyroidism: Plan This patient is a 45-year-old female with a history of HTN, prediabetes, obesity, vitamin D deficiency, migraine headaches, HLD who presents to the ER with significant chest palpitations and a fast heart rate along with development of shortness of breath over the last 24 hours. She has been having intermittent heart palpitations over the last 6 to 9 months and had a Holter monitor for 6 days which was normal in 10/2024. Denies chest pain. In the ED, she was found to be in rapid atrial fibrillation with a rate of 163 on ECG. She had no ischemic changes but her troponin was elevated at 105. Her TSH was undetectable and her free T4 was elevated. She was given 2 boluses of IV diltiazem which brought her heart rate down to 120s and was started on a diltiazem drip. There was no evidence of heart failure and in fact the patient reports she has unintentionally lost about 30 pounds over the last year. She was admitted for rapid atrial fibrillation and overt hyperthyroidism #Rapid atrial fibrillation/elevated troponin-likely precipitated by hyperthyroidism. Troponin 100/97/102/94 and fairly stable secondary to myocardial demand ischemia from rapid atrial fibrillation.she had no ischemic changes on ECG, no chest pain, no evidence of CHF She converted spontaneously to normal sinus rhythm by the next morning and did not require cardioversion. She was seen by cardiology who recommended Eliquis, metoprolol, and follow-up in a few weeks. Treatment of hyperthyroidism will hopefully help prevent future atrial fibrillation episodes and she may be a candidate for atrial fibrillation ablation in the future. Echocardiogram with LVEF 60-65%, no regional wall motion abnormalities, mild LVH, mild MR, mild pulmonary hypertension. -Discharge home on Toprol-XL 75 mg p.o. daily and Eliquis 5 mg p.o. twice daily -The metoprolol will treat both hyperthyroidism symptoms and rapid afib - Monitor CBC while on anticoagulation as an outpatient. Monitor BMP due to hypokalemia although I am discontinuing her HCTZ on discharge which should help prevent hypokalemia #Hyperthyroidism-TSH undetectable, FT4 high, FT3 also very high. With unintentional weight loss, rapid atrial fibrillation, thinning hair, dysphagia, possible palpable thyroid nodule on exam. Thyroid ultrasound read as right sided thyroid nodule that is hypervascular and also with left thyroid lobe with increased vascularity likely consistent with Graves' disease. I discussed her care with endocrinology who does not feel that an FNA of a thyroid nodule is necessary at this time as this may just be enlarged thyroid from Graves' disease. -started beta duncan with metoprolol as above - Started methimazole 20 mg p.o. twice daily - TSI, TPO ab, and thyroglobulin ab pending at the time of discharge -Follow-up with endocrine as outpt-this is being arranged by Dr. Cho #Hypokalemia-K+ 3.2 on admission, 2/2 HCTZ use. Replaced and resolved -follow BMP as an outpatient - Discontinue HCTZ #HTN/HLD-BPs normal on metoprolol - Discontinue HCTZ and losartan as BPs are controlled on metoprolol alone - Monitor BP as an outpatient #Microcytosis without anemia-hgb normal but MCV now low at 79. Iron studies, ferritin normal. Unclear cause but she is not anemic -follow CBC especially now that starting on eliquis in case of occult bleeding #Prediabetes-glucose 179 on arrival, last A1C 5.9% and now still in prediabetic range at 6.0% -Weight loss and low carbohydrate diet #Obesity BMI 36.6-has already lost 30 lbs from hyperthyroidism -follow as outpt #Migraine headaches-with LOPEZ likely related to rapid afib now resolved -triptans prn #Vitamin D deficiency-continue vit D supplement DVT prophylaxis-Eliquis Disposition-stable for discharge to home Notes For Next Care Provider Needs close follow-up with endocrinology-this is being arranged by endocrinology Follow BMP and CBC in 2 weeks Medication Changes From Visit Added methimazole 20 mg p.o. twice daily Added Toprol-XL 75 mg p.o. daily Discontinued HCTZ and losartan Admission HPI Per Admitting Provider This patient is a 45-year-old female with a history of HTN, prediabetes, obes ity, vitamin D deficiency, migraine headaches, HLD who presents to the ER with significant chest palpitations and a fast heart rate along with development of shortness of breath over the last 24 hours. She has been having intermittent heart palpitations over the last 6 to 9 months and had a Holter monitor for 6 days which was normal in 10/2024. Denies chest pain. In the ED, she was found to be in rapid atrial fibrillation with a rate of 163 on ECG. She had no ischemic changes but her troponin was elevated at 105. Her TSH was undetectable and her free T4 was elevated. She was given 2 boluses of IV diltiazem which brought her heart rate down to 120s and was started on a diltiazem drip. There was no evidence of heart failure and in fact the patient reports she has unintentionally lost about 30 pounds over the last year.Has had some dysphagia as well. She will be admitted for rapid atrial fibrillation. Discharge Exam Constitutional WD/WN, vitals as above ENMT external ear and nose normal, oropharynx normal Respiratory normal respiratory effort, lungs clear to auscultation Cardiovascular RRR, no murmur, no edema Chest (Breasts) Chest: normal inspection of chest Musculoskeletal Extremities: extremities normal to inspection; no cyanosis and no clubbing Skin no rashes, warm and dry Neurologic moves all extremities and awake; no focal motor deficits Psychiatric A+Ox3, euthymic affect Lymphatic no lymphedema Discharge Plan Discharge Items Patient Disposition: Home - Self-Care Reason For Visit: RAPID ATRIAL FIBRILLATION Discharge Diagnosis: Rapid atrial fibrillation Hyperthyroidism Hypokalemia Condition on Discharge: Good Activity: Resume your previous activity Non-emergency contact: Primary Care Provider, Specialist and Desk Reporter Call non-emergency contact if: you have any medication questions and your symptoms worsen Follow-up/Referrals: Pieter Cho MD [Physician] - (The endocrinology office will reach out to you with your appointment date and time in the next few weeks.) Elan Aguiar MD [Physician] - (The cardiology office will reach out to you with your appointment date and time in the next few weeks) Kia Tariq DO [Primary Care Provider] - 05/06/25 10:20 am (Follow-up within 1-2 weeks follow-up within 1-2 weeks) Diet: Regular Addtl Attending Provider Instructions: You were admitted with rapid atrial fibrillation and converted to normal rhythm on your own accord. You will be started on a medication called metoprolol to help slow down the heart rate, as well as a blood thinner called Eliquis to help prevent stroke associated with atrial fibrillation. If your atrial fibrillation recurs and you have chest pain, shortness of breath, lightheadedness, or any other acute concerns, please return to the hospital. If your heart rate is fast but you are otherwise feeling well, please call the cardiology office and ask for advice on what to do. You were diagnosed with overactive thyroid which may be due to Graves' disease. Some confirmatory blood tests for thyroid disease are pending and you will be started on a medication to combat the overactive thyroid called methimazole. You will need to follow-up with the dope firer for further management of this condition. Your losartan and HCTZ blood pressure medications will be discontinued and exchanged for the metoprolol. It was a pleasure taking care of you! Jie Rendon MD Pending Studies at Discharge: Yes (Thyroid antibodies) Stand-Alone Forms: [facility] Medications and DC Order Prescriptions: New Eliquis 5 mg tablet 5 mg PO BID Qty: 60 0RF Rx Instructions: new order metoprolol succinate [Toprol XL] 25 mg tablet extended release 24 hr 75 mg PO HS Qty: 90 0RF methimazole 10 mg tablet 20 mg PO BID Qty: 120 0RF Continued sumatriptan succinate 100 mg tablet 100 mg PO .COMPLEX PRN (Reason: migraine headache) Qty: 9 5RF Rx Instructions: TAKE 1 TABLET AT ONSET OF MIGRAINE HEADACHE. MAY REPEAT IN 2 HOURS IF NEEDED PRN; cholecalciferol (vitamin D3) 50 mcg (2,000 unit) capsule 2,000 unit PO QAM Ubrelvy 100 mg tablet See Rx Instructions .Route .COMPLEX Qty: 10 0RF Rx Instructions: Take 1 tab PO at onset of headache. May repeat dose after 1 hr x 1 if nee ded. Do not exceed 200mg in 24 hrs.; Discontinued hydrochlorothiazide 25 mg tablet 25 mg PO QAM Qty: 90 1RF losartan 50 mg tablet 50 mg PO QAM Qty: 90 1RF Discharge Orders: Discharge Order (Routine); Ordered 04/29/25 Ordered By: Jie Larose/Other Patient Handouts: Prediabetes, 5 Steps for Eating Healthier, AFib Admission Data Admit Date/Time: 04/28/25 18:16 Attending Provider: Jie Rendon Admit Provider: Jie Rendon Primary Care Provider: Kia Tariq Other Providers: Jie Rendon; Bar Jean Other Interventions: Discharge Summary Assessment (RN) Last Done: 04/29/25 13:25 Hospital Stay Data Consultations 04/28/25 16:36 ED Decision to Admit Stat 04/28/25 20:51 Consult Cardiology Routine Diagnostic Imagining Performed 04/28/25 18:43 US thyroid Routine ECHO Pending Results Patient Have Any Pending Studies at Discharge: Yes (Thyroid antibodies) Discharge Instructions Given to Patient (Per Discharging Provider) You were admitted with rapid atrial fibrillation and converted to normal rhythm on your own accord. You will be started on a medication called metoprolol to help slow down the heart rate, as well as a blood thinner called Eliquis to help prevent stroke associated with atrial fibrillation. If your atrial fibrillation recurs and you have chest pain, shortness of breath, lightheadedness, or any other acute concerns, please return to the hospital. If your heart rate is fast but you are otherwise feeling well, please call the cardiology office and ask for advice on what to do. You were diagnosed with overactive thyroid which may be due to Graves' disease. Some confirmatory blood tests for thyroid disease are pending and you will be started on a medication to combat the overactive thyroid called methimazole. You will need to follow-up with the dope firer for further management of this condition. Your losartan and HCTZ blood pressure medications will be discontinued and exchanged for the metoprolol. It was a pleasure taking care of you! Jie Rendon MD Total Time Total Time Spent Total Time Spent (In Minutes): 40 minutes Total Time Includes: Examination of the Patient, Discharge Planning, Medication Reconciliation and Communication With Other Providers (Cardiology) Coding Level of Care Code 36023 INP/OBS DISCH >30 MIN Diagnoses Atrial fibrillation, new onset I48.91 Hypokalemia E87.6 Elevated troponin I level R79.89 Hyperthyroidism E05.90
--- NOTE | 2025-04-29 16:05 | XCELERA ---
[id number] [id number]
--- NOTE | 2025-05-01 06:01 | Electrocardiogram Report ---
Test Reason : Blood Pressure : */* mmHG Vent. Rate : 75 BPM Atrial Rate : 75 BPM P-R Int : 132 ms QRS Dur : 102 ms QT Int : 400 ms P-R-T Axes : 49 15 20 degrees QTcB Int : 446 ms Normal sinus rhythm Normal ECG When compared with ECG of 28-Apr-2025 14:24, Sinus rhythm has replaced Atrial fibrillation Confirmed by Elan Aguiar ([id number]) on 05/01/2025 6:01:17 AM Referred By: REFERRED SELF Confirmed By: Elan Aguiar
[2025-05-05 18:07] LABS: TSI 239 % baseline (<140); Thyroglobulin 89.2 ng/mL; Thyroglobulin Antibodies <1 IU/mL (< or = 1)
== END 2025-04-29 13:36 | disposition home or self-care (01) | DRG 309 ==
LOC: SUATTDRO → ED 13:30 → 2S 18:16 → INTOOBSV 18:16 → 2S 20:12